=== PATIENT | female | born 2000 | race African-American/Black ===

== ENCOUNTER 2022-07-06 00:33 | Emergency (ER) | payer OTHER, BC, SELFPAY ==
--- NOTE | ~2022-07-06 | XR_ITS ---
EXAMINATION: XR abdomen/kub 1V DATE: 07/06/2022 02:18 INDICATION: Low abdominal pain. TECHNIQUE: A supine view of the abdomen on 2 radiographs was obtained. COMPARISON: None. FINDINGS: There are no dilated loops of bowel. There is a moderate volume of stool in the colon. IMPRESSION: 1. Nonobstructive bowel gas pattern. Reviewed, dictated and finalized at location A.
[2022-07-06 00:38] VITALS: BP 107/61; PULSE 69; RESP 16; TEMP 36.3; O2SAT 100
[2022-07-06 01:19] LABS: Basophils Absolute Auto 0.1 K/mm3 (0.0-0.1); Basophils Percent Auto 1.7 % (0.2-1.2); Eosinophils Absolute Auto 0.2 K/mm3 (0-0.3); Eosinophils Percent Auto 4.1 % (0-4.4); Hematocrit 27.3 % (37.0-47.0); Hemoglobin 7.6 g/dL (12.0-15.0); Immature Granulocyte Absolute 0.01 K/mm3 (0.00-0.031); Immature Granulocyte Percent A 0.2 % (0-0.5); Lymphocytes Absolute Auto 2.17 K/mm3 (0.9-3.2); Lymphocytes Percent Auto 52.7 % (18.3-44.2); Mean Corpuscular HGB Conc 27.8 g/dl (32-36); Mean Corpuscular Hemoglobin 18.9 pg (26-34); Mean Corpuscular Volume 67.9 fl (80-100); Mean Platelet Volume 10.5 fl (7.4-10.4); Monocytes Absolute Auto 0.4 K/mm3 (0.1-0.6); Monocytes Percent Auto 8.7 % (2.6-8.5); Neutrophils Absolute Auto 1.3 K/mm3 (1.3-6.7); Neutrophils Percent Auto 32.6 % (45.5-73.1); Platelet Count Result 444 k/mm3 (150-375); Red Blood Count 4.02 M/mm3 (4.2-5.4); Red Cell Distribution Width 19.6 % (11.5-14.5); White Blood Count 4.1 K/mm3 (4.5-10.0)
[2022-07-06 01:21] LABS: Hypochromasia 1+ (NORMAL); Platelet Estimate Increased (Adequate)
[2022-07-06 01:22] LABS: Add Urine Microscopic? YES; Appearance Urine Cloudy (Clear); Bilirubin Urine Negative (Negative); Blood Urine Negative (Negative); Color Urine Straw (Yellow); Glucose Urine UA Negative (Negative); Ketones Urine Negative (Negative); Leukocyte Esterase Ur Negative LEU/UL (Negative); Mucus Urine Rare /lpf; Nitrate Urine Negative (Negative); Protein Urine Negative (Negative); RBC Urine 0-2 /hpf (0-2); Specific Grav Ur 1.017 (1.001-1.035); Squamous Epithelial Cell Urine Rare /hpf (Few); Urobilinogen Urine Negative mg/dL (<2.0); WBC Urine 0-3 /hpf
--- NOTE | 2022-07-06 01:23 | ED.ABDPAIN ---
HPI - Abdominal Pain General Chief Complaint: Abdominal Pain Stated Complaint: abdominal pain Time Seen by Provider: 07/06/22 01:01 History of Present Illness HPI narrative: 21-year-old female presents the emergency room with gradual onset of generalized abdominal pain. Patient denies fever. Denies nausea vomiting diarrhea or constipation. Denies radiating pain. States has tried ibuprofen once with no resolution of symptoms. Denies any alleviating or aggravating factors. Related Data Allergies Allergy/AdvReac Type Severity Reaction Status Date / Time No Known Allergies Allergy Verified 07/06/22 00:50 Review of Systems Review of Systems: CONSTITUTIONAL: Denies fever, chills, or sweats. EYES: Denies visual changes, redness, or discharge. ENT: Denies rhinorrhea, congestion, sore throat, or otalgia. CARDIOVASCULAR: Denies chest pain, palpitations, or edema. RESPIRATORY: Denies cough or dyspnea. GASTROINTESTINAL: Reports abdominal pain GENITOURINARY: Denies dysuria or hematuria. SKIN: Denies rash or itching. MUSCULOSKELETAL: Denies back pain, joint pain, or myalgia. NEUROLOGIC: Denies headache, numbness, dizziness, or weakness. PSYCHIATRIC: Denies anxiety or depression. Exam Narrative: GENERAL: Well-appearing, well-nourished, no physical limitations, and in no acute distress. HEAD: Normocephalic, atraumatic. EYES: Conjunctivae normal, PERRLA and EOMI. CHEST: Clear to auscultation. No respiratory distress. No wheezes rales or rhonchi. HEART: Regular rate and rhythm. No murmur heard. Normal peripheral pulses. ABDOMEN: Soft, nontender, nondistended, normal active bowel sounds. BACK: No CVA tenderness; EXTREMITIES: Normal range of motion. No edema. No clubbing or cyanosis SKIN: Warm, dry, no rash. No noted wounds NEURO: No focal deficits. Alert and oriented x3. MAEW. CN's II-XI intact bilaterally, normal gait PSYCH: Cooperative. Normal mood and affect. Course Vital Signs Vital signs: Vital Signs Temperature 36.3 C L 07/06/22 00:38 Pulse Rate 69 10 00:38 Respiratory Rate 16 10 00:38 Blood Pressure 107/61 07/06/22 00:38 Pulse Oximetry 100 07/06/22 00:38 Oxygen Delivery Room Air 07/06/22 00:38 Temperature 36.3 C L 07/06/22 00:38 Pulse Rate 69 07/06/22 00:38 Respiratory Rate 16 07/06/22 00:38 Blood Pressure 107/61 07/06/22 00:38 Pulse Oximetry 100 07/06/22 00:38 Oxygen Delivery Room Air 07/06/22 00:38 MDM - Abdominal Pain Lab Data Result diagrams: 07/06/22 01:10 07/06/22 01:10 Labs: Lab Results 07/06/22 07/06/22 07/06/22 Range/Units 01:10 01:10 01:10 WBC 4.1 L (4.5-10.0) K/mm3 RBC 4.02 L (4.2-5.4) M/mm3 Hgb 7.6 L (12.0-15.0) g/dL Hct 27.3 L (37.0-47.0) % MCV 67.9 L (80-100) fl MCH 18.9 L (26-34) pg MCHC 27.8 L (32-36) g/dl RDW 19.6 H (11.5-14.5) % Plt Count 444 H (150-375) k/mm3 MPV 10.5 H (7.4-10.4) fl Immature Gran % (Auto) 0.2 (0-0.5) % Neut % (Auto) 32.6 L (45.5-73.1) % Lymph % (Auto) 52.7 H (18.3-44.2) % Barry % (Auto) 8.7 H (2.6-8.5) % Eos % (Auto) 4.1 (0-4.4) % Baso % (Auto) 1.7 H (0.2-1.2) % Lymph # (Auto) 2.17 (0.9-3.2) K/mm3 Barry # (Auto) 0.4 (0.1-0.6) K/mm3 Eos # (Auto) 0.2 (0-0.3) K/mm3 Baso # (Auto) 0.1 (0.0-0.1) K/mm3 Abs Immat Gran (auto) 0.01 (0.00-0.031) K/mm3 Absolute Neuts (auto) 1.3 (1.3-6.7) K/mm3 Absolute Nucleated RBC 0.0 (0.0-0.012) K/mm3 Nucleated RBC % 0.0 (0.0-0.2) % Platelet Estimate Increased (Adequate) Hypochromasia 1+ (NORMAL) Schistocytes None seen (NORMAL) Sodium 139 (134-143) mmol/L Potassium 4.0 (3.4-5.0) mmol/L Chloride 106 (98-107) mmol/L Carbon Dioxide 24 (22-30) mmol/L Anion Gap 9 (8-16) mmol/L BUN 13 (8-21) mg/dL Creatinine 0.70 (0.7-1.0) mg/dL Estim Creat Clear Calc 95 ml/min Estimated GFR > 60 (59 -
[2022-07-06 01:27] LABS: Schistocytes None Seen (NORMAL)
[2022-07-06 01:29] LABS: Alanine Aminotransferase 16 U/L (6-35); Albumin Level 4.7 g/dL (3.7-5.6); Alkaline Phosphatase 68 U/L (45-116); Anion Gap 9 mmol/L (8-16); Aspartate Amino Transferase 29 U/L (14-36); Bilirubin,Total 0.5 mg/dL (0.2-1.3); Blood Urea Nitrogen 13 mg/dL (8-21); Carbon Dioxide 24 mmol/L (22-30); Chloride 106 mmol/L (98-107); Estimated CRCL calculation 95 ml/min; Estimated Glomerular Filt Rate > 60; Glucose 94 mg/dL (65-110); Lipase 143 U/L (23-300); Sodium 139 mmol/L (134-143)
[2022-07-06 04:15] LABS: Iron 26 ug/dL (37-170)
[2022-07-06 04:26] LABS: Percent Iron Saturation 5 % (20-50)
[2022-07-06 04:54] LABS: Ferritin 3.55 ng/mL (6.24-137)
== END 2022-07-06 02:36 | disposition home or self-care (01) ==
PROVIDERS: Emergency Provider Nurse Practitioner Family
DX: K59.00 Constipation, unspecified (principal); D64.9 Anemia, unspecified
CPT/HCPCS: 36415; 74018; 80053; 81001; 81025; 82728; 83540; 83550; 83690; 85025; 99283; A9270

== ENCOUNTER 2024-05-28 22:17 | Emergency (ER) | payer OTHER, BC, SELFPAY ==
--- NOTE | ~2024-05-28 | XR_ITS ---
Left elbow Technique: AP, oblique, and lateral views were obtained. Clinical History: Pain Findings: No acute fracture or dislocation is seen. Osseous alignment is anatomic. Joint spaces are p reserved. There is no displacement of the fat pads, and soft tissues are unremarkable. Impression: Unremarkable radiographs. Reviewed, dictated and finalized at location . Impression: Unremarkable radiographs.
--- NOTE | ~2024-05-28 | XR_ITS ---
AP view of the pelvis and AP and lateral views of the left hip Clinical history: Pain Findings: No acute fracture or dislocation is seen. Osseous alignment is anatomic. Bilateral hip and SI joint spaces are preserved. Soft tissues are unremarkable. Impression: No significant abnormality is seen. Reviewed, dictated and finalized at [facility]. Impression: No significant abnormality is seen.
--- NOTE | ~2024-05-28 | XR_ITS ---
Left Shoulder Technique: AP and scapular Y views were obtained. Clinical History: Pain Findings: No fracture or dislocation is seen. Osseous alignment is anatomic. The glenohumeral and acr omioclavicular joint spaces are preserved. Soft tissues are unremarkable. Impression: Unremarkable left shoulder radiographs. Reviewed, dictated and finalized at [facility]. Impression: Unremarkable left shoulder radiographs.
[2024-05-28 22:50] VITALS: BP 104/66; PULSE 95; RESP 16; TEMP 36.7; O2SAT 100
[2024-05-29 04:13] VITALS: BP 116/68; PULSE 71; RESP 16; TEMP 36.8; O2SAT 100
[2024-05-29] MEDS: ACETAMINOPHEN 500 MG TABLET 1000 MG PO (04:38)
[2024-05-29] MEDS: methocarbamoL 750 MG TABLET 1500 MG PO (04:39)
[2024-05-29] MEDS: KETOROLAC 30 MG/ML VIAL (*BKC) IM (04:39)
[2024-05-29 04:52] LABS: BEDSIDEPREGUCG Negative
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
== END 2024-05-29 05:38 | disposition home or self-care (01) ==
PROVIDERS: Emergency Provider Emergency Medicine
DX: M25.512 Pain in left shoulder (principal); M25.522 Pain in left elbow; M25.552 Pain in left hip; M25.562 Pain in left knee; V49.40XA Driver injured in collision with unspecified motor vehicles in traffic accident, initial encounter
CPT/HCPCS: 73030; 73080; 73502; 73562; 81025; 96372; 99284; A9270; J1885